=== PATIENT | male | born 1995 | race Caucasian/White ===

== ENCOUNTER → 2024-06-27 14:38 | Outpatient (BNVA) | payer OTHER, SELFPAY | PROVIDERS: Visit Provider Registered Nurse | DX: M46.1 Sacroiliitis, not elsewhere classified (principal) | CPT/HCPCS: 72220; 99204 ==

== ENCOUNTER → 2024-07-04 09:12 | Outpatient (BNVA) | payer OTHER, SELFPAY | PROVIDERS: Visit Provider Registered Nurse | DX: Z02.79 Encounter for issue of other medical certificate (principal); M53.3 Sacrococcygeal disorders, not elsewhere classified ==

== ENCOUNTER → 2024-07-18 09:12 | Outpatient (BNVA) | payer OTHER, SELFPAY | PROVIDERS: Visit Provider Registered Nurse | DX: M46.1 Sacroiliitis, not elsewhere classified (principal) | CPT/HCPCS: 99213 ==

== ENCOUNTER → 2024-08-05 09:48 | Outpatient (BNVA) | payer OTHER, SELFPAY | PROVIDERS: Visit Provider Registered Nurse | DX: M46.1 Sacroiliitis, not elsewhere classified (principal); Z02.79 Encounter for issue of other medical certificate | CPT/HCPCS: 99213 ==

== ENCOUNTER → 2024-09-02 10:49 | Outpatient (BNVA) | payer OTHER, SELFPAY | PROVIDERS: Visit Provider Registered Nurse | DX: M46.1 Sacroiliitis, not elsewhere classified (principal); Z02.79 Encounter for issue of other medical certificate | CPT/HCPCS: 99213 ==

== ENCOUNTER → 2024-09-23 10:40 | Outpatient (BNVA) | payer OTHER, SELFPAY | PROVIDERS: Visit Provider Registered Nurse | DX: M53.3 Sacrococcygeal disorders, not elsewhere classified (principal) | CPT/HCPCS: 99213 ==

== ENCOUNTER → 2024-09-30 10:47 | Outpatient (BNVA) | payer OTHER, SELFPAY | PROVIDERS: Visit Provider Registered Nurse | DX: M46.1 Sacroiliitis, not elsewhere classified (principal) | CPT/HCPCS: 99213 ==

== ENCOUNTER → 2024-10-21 10:09 | Outpatient (BNVA) | payer OTHER, SELFPAY | PROVIDERS: Visit Provider Registered Nurse | DX: M53.3 Sacrococcygeal disorders, not elsewhere classified (principal) | CPT/HCPCS: 99213 ==

== ENCOUNTER 2024-10-31 11:42 | Outpatient (AMB) | payer OTHER, SELFPAY ==
[2024-10-31 11:53] VITALS: BP 168/81; PULSE 82; O2SAT 99; BMI 32.8
--- NOTE | 2024-10-31 11:53 | MHC.OFFVIS ---
Vital Signs 10/31/24 11:53 Height 5 ft 10 in Weight 228 lb 6 oz BMI 32.8 BP 168/81 H Blood Pressure Location Lt brachial Position Sitting Pulse 82 Pulse Source Pulse Oximeter Pulse Oximetry (%) 99 Oxygen Delivery Method Room Air Intake Visit Reasons: WC Back Injury Allergies No Known Allergies Allergy (Verified 10/31/24 11:54) HPI Comments Details: The patient is a 29-year-old male presenting with chronic lower back pain radiating to the left leg. The pain started following a work-related injury in May 2024, which occurred while trying to prevent a moving object, resulting in a twisted back. The left lower back pain is consistent, sharp, and radiates down the leg, impacting his daily activities and work functionality. The patient reports the pain began immediately after the incident and has persisted, prompting him to seek various interventions including physical therapy, which provided temporary improvement. Use of muscle relaxants and anti-inflammatories has been part of his pain management routine, with noted adverse effects. The patient experiences associated symptoms such as numbness and tingling along with muscle spasms, but denies any pain at the sacroiliac joint. While physical therapy was completed, the pain recurred upon resuming work activities. Exacerbation is noted with extended walking, standing, or sitting, and relief is minimal with the use of medication due to its side effects, thus limiting its use. Patient reports he had x-rays after the injury. Results are not available for review today - Onset: May 2024- Affect: Pain impacts patient?s ability to work, causing distress - Analgesia: Currently using muscle relaxants and anti-inflammatory medication with partial relief - Adverse Effects: Muscle relaxants cause drowsiness, limiting their use to post-work hours - Activities of Daily Living: Pain affects job performance, mobility, and some daily activities - Aberrant Drug Related Behaviors: None reported , following a work-related incident - Quality: Sharp, tingling sensation - Location: Left lower back, radiating down the left leg - Radiation: Through the entire left leg to the foot - Aggravating Factors: Prolonged walking, sitting, operating a forklift, certain exercises - Relieving Factors: Temporary relief with physical therapy, partial relief with medication - Interference: Affects walking, standing, daily activities, and work tasks Review of Systems Const Details: - Musculoskeletal: Reports lower back pain and muscle spasms - Neurological: Reports numbness and tingling in the left leg to the foot - General: Denies systemic symptoms such as fever or weight loss Physical Exam Vital Signs: Last Vital Signs Pulse 82 10/31/24 11:53 BP 168/81 H 10/31/24 11:53 Pulse Ox 99 10/31/24 11:53 Oxygen Delivery Method Room Air 10/31/24 11:53 BMI result Body Mass Index 32.8 General: awake, alert, oriented. Answers questions appropriately. Fully engaged in examination. Skin: warm, dry, intact HEENT: Normocephalic. Hearing intact. Cardiac: External chest normal in appearance. Respiratory: No cough, audible wheezing or stridor. Abdomen: without gross distension. MS: No obvious swelling or deformities. Able to stand on bilateral tiptoes and bilateral heels.? Able to transition from sit to stand unassisted. Ambulates with bilaterally normal heel strike and toe off Bilateral lower extremity strength 5/5 Tenderness left lumbar paraspinal muscles and lumbar vertebrae Nontender over bilateral PSIS SLR positive on the left Decreased lumbar range of motion. Significant pain with forward flexion. Minimal pain with lumbar extension. Facet loading positive Neurological: Oriented to person, place, time and situation. Thought process intact. No gait abnormalities appreciated. Psychiatric: Appropriate mood and affect. Good judgment and insight. Assessment & Plan Assessment & Plan (1) Lumbar radiculopathy: Code(s): M54.16 - Radiculopathy, lumbar region Category: Medical (2) Back pain: Code(s): M54.9 - Dorsalgia, unspecified Category: Medical Plan An MRI of the lumbar spine is ordered to assess the extent of any potential neural involvement due to persistent symptoms. I discussed the importance of continuing physical therapy while avoiding any exercises that aggravate pain. Current medications should be continued as prescribed with awareness of managing side effects. I explained possible further interventions, such as injections, depending on the MRI findings. A follow-up appointment is advised after the MRI to review results and adjust the treatment plan accordingly. I discussed with the patient the likelihood of chronic mechanical lower back pain with radicular symptoms, potentially linked to disc or soft tissue injury. I emphasized obtaining an MRI to gain better insight into his condition. We discussed the management options, including continuing physical therapy and careful use of muscle relaxants and anti-inflammatories, detailing the side effects. I explained the possible need for further interventions such as spinal injections if indicated by MRI findings. The patient was informed of potential outcomes and encouraged to seek medical attention if symptoms exacerbate or new symptoms develop. Follow-up arrangements post-MRI were agreed upon to ensure appropriate management of his condition. Patient was informed and verbally consented to the use of an ambient scribe for clinic note documentation during this visit. Orders: Orders MR lumbar spine wo con Today M54.16 - Radiculopathy, lumbar region Patient Instructions: - Schedule and attend MRI appointment as discussed - Continue with physical therapy exercises that do not increase pain - Take prescribed medications as directed and monitor for side effects - Schedule follow-up visit after MRI for review outcome and further management - Report any worsening of symptoms or new symptoms immediately - Avoid activities known to exacerbate symptoms where possible Coding Level of Care Code New Pt Level 4 (14785) Complex EM visit Add On G2211 Diagnoses Lumbar radiculopathy M54.16 Back pain M54.9
== END 2024-10-31 12:08 | disposition home or self-care (01) ==
LOC: HO.PMC 11:43
PROVIDERS: Visit Provider Registered Nurse Emergency
DX: M54.16 Radiculopathy, lumbar region (principal); M54.9 Dorsalgia, unspecified
CPT/HCPCS: 99204; G2211

== ENCOUNTER → 2024-10-31 11:42 | Outpatient (BNVA) | payer OTHER, SELFPAY | PROVIDERS: Visit Provider Registered Nurse Emergency | DX: M54.16 Radiculopathy, lumbar region (principal); M54.9 Dorsalgia, unspecified | CPT/HCPCS: 99202 ==

== ENCOUNTER → 2024-11-18 18:40 | Outpatient (BNV) | payer OTHER, SELFPAY | PROVIDERS: Visit Provider Radiology Diagnostic Radiology | DX: M54.16 Radiculopathy, lumbar region (principal) | CPT/HCPCS: 72148 ==

== ENCOUNTER 2024-11-18 18:50 | Outpatient (REF) | payer OTHER, SELFPAY ==
--- NOTE | ~2024-11-18 | MR_ITS ---
EXAMINATION: MR LUMBAR SPINE WITHOUT CONTRAST CLINICAL INFORMATION: Radiculopathy, lumbar region. COMPARISON: None available. TECHNIQUE: MRI of the lumbar spine was obtained using routine sequences without contrast. FINDINGS: Last rib-bearing vertebra labeled T12. No bone marrow STIR signal abnormality. There is probably sacralization of a vertebra labeled S1.. There is There is a grade 1 retrolisthesis L5-S1. There is dislocation at L2-3, L3-4 levels. The conus medullaris ends at pedicle of L1 with normal signal. There is prominent epidural fat in a circumferential fashion from L4 to sacrum. T11-12: No disc herniation. No neuroforamina stenosis. Facet joint hypertrophy. T12-L1: No disc herniation. No neuroforamina stenosis. L1-2: No disc herniation. No neuroforamina stenosis. L2-3: Broad-based disc bulging. No central spinal canal or neuroforamina stenosis. L3-4: Broad-based disc bulging. Facet joint hypertrophy. Reduced AP diameter of the thecal sac. No compression upon neural elements. No gross neuroforamina stenosis. L4-5: Broad-based disc bulging. Facet joint hypertrophy. Prominent epidural fat. Reduced AP diameter of the thecal sac. L5-S1: Broad-based disc bulging. Facet joint hypertrophy. Prominent epidural fat. Reduced AP diameter of the thecal sac and the neural foramina. No compression upon neural elements. No prevertebral compartment hematoma, mass or fluid collection. Degenerative changes in the sacroiliac joints. MR/MR lumbar spine wo con IMPRESSION: Mild multilevel lumbar spondylosis more conspicuous at L4-5 without compression upon neural elements. Mild epidural lipomatosis, L4-5 to sacrum. Electronically signed by: Bharat Alberts MD 11/20/2024 10:20 AM EDT
== END 2024-11-18 18:51 | disposition home or self-care (01) ==
LOC: HO.MRI 18:50
PROVIDERS: Visit Provider Registered Nurse Emergency
DX: M54.16 Radiculopathy, lumbar region (principal)
CPT/HCPCS: 72148